=== PATIENT | female | born 2000 | race American Indian/Alaskan Native ===

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

== ENCOUNTER 2022-11-05 22:10 | Emergency (ER) | payer OTHER, SELFPAY ==
[2022-11-05 22:10] VITALS: BP 131/73; PULSE 90; RESP 20; TEMP 36.9; O2SAT 100; BMI 23.0
--- NOTE | 2022-11-05 22:34 | PC.NURSE ---
Pt is crying while laying in bed. Pt reports that she gets overwhelmed due to feeling like nobody will help her and she gets to a point were she can not take it anymore and wishes she could just off herself or the children. The pt has no plan and states that she doesn't truly want to kill herself for her children and that she just feels overwhelmed and wants it all to to end. She states that she is aware of her depression and the steps she must take (medication counseling) but is having a hard time initiating them. She is also sad that her support system will not help her until she helps herself. Pt reports drinking a 5th of vodka tonight and has been vomiting due to the excessive drinking. Pt denies any pain beyond her usual chronic back pain. Pt denies CP, SOB, dizziness. Pt drinking water.
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
[2022-11-05 23:10] LABS: Appearance Urine UA CLEAR; Bilirubin Urine UA NEGATIVE (NEGATIVE); Color Urine UA YELLOW; Glucose Urine UA NEGATIVE (Negative); Ketones Urine UA NEGATIVE (NEGATIVE); Leukocyte Esterase Urine UA 1+ (NEGATIVE); Nitrite Urine UA NEGATIVE (Negative); Occult Blood Urine UA NEGATIVE (Negative); Protein Urine UA NEGATIVE (Negative); Specific Gravity Urine UA 1.025 (1.000-1.035); Urobilinogen Urine UA 0.2 E.U./dL (0.2)
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
[2022-11-05 23:14] LABS: Pregnancy Test Urine Negative (Negative); pH Urine UA 5.5 (4.5-8.0)
[2022-11-05 23:17] LABS: Ur Creatinine 20 (Normal); Ur Specific Gravity >1.030 (Normal); Urine pH 5 (Normal)
[2022-11-05 23:18] LABS: UR Morphine/Opiate cutoff 300 Negative (Negative); Urine Amphetamines Negative (Negative); Urine Barbiturates Negative (Negative); Urine Benzodiazepines Negative (Negative); Urine Cocaine Negative (Negative); Urine MDMA Negative (Negative); Urine Methadone Negative (Negative); Urine Methamphetamines Negative (Negative); Urine Oxycodone Negative (Negative); Urine Phencyclidine Negative (Negative); Urine Tetrahydrocannabinol Positive (Negative); Urine Tricyclic Antidepressant Negative (Negative)
[2022-11-05 23:26] LABS: RBC Urine None Seen (0-5/HPF)
[2022-11-05 23:27] LABS: Bacteria Urine Moderate (10-30); Culture Indicated Urine Specimen Cultured; Squamous Epithelial Cell Urine 1-5 /HPF (0-5/HPF); WBC Urine 1-5/HPF (0-5/HPF)
[2022-11-05 23:53] LABS: Add Manual Diff / Slide Review NO; Basophils Absolute Auto 100 /uL (0-100); Basophils Percent Auto 1.3 % (0-2); Eosinophils Absolute Auto 200 /uL (0-450); Eosinophils Percent Auto 2.9 % (2-4); Hematocrit 34.1 % (36-46); Hemoglobin 11.5 g/dL (12.0-16.0); Lymphocytes Absolute Auto 1600 /uL (1100-4500); Lymphocytes Percent Auto 27.6 % (25-40); Mean Corpuscular HGB Conc 33.8 % (30-36); Mean Corpuscular Hemoglobin 29.1 PG (26-34); Mean Corpuscular Volume 86.1 fL (80-100); Monocytes Absolute Auto 400 /uL (0-900); Neutrophils Absolute Auto 3600 /uL (1500-7000); Neutrophils Percent Auto 61.2 % (50-75); Platelet Count 348 X10^3/uL (150-400); Red Blood Cell Count 3.96 X10^6/uL (4.0-5.2); Red Cell Distribution Width 16.7 % (11.6-14.8); White Blood Cell Count 5.9 X10^3/uL (4.5-11.0)
[2022-11-05 23:56] LABS: Lipase 96 U/L (23-300); Magnesium 1.6 mg/dL (1.6-2.3)
[2022-11-05 23:57] LABS: Alanine Aminotransferase 19 IU/L (<35); Albumin 4.4 g/dL (3.5-5.0); Albumin Globulin Ratio 1.4 (1.0-2.8); Alkaline Phosphatase 86 U/L (38-126); Aspartate Aminotransferase 31 IU/L (14-36); BUN Creatinine Ratio 13.8 (6-22); Bilirubin Total 0.4 mg/dL (0.2-1.3); Blood Urea Nitrogen 8 mg/dL (7-17); Calcium 8.6 mg/dL (8.4-10.2); Carbon Dioxide 24 mmol/L (22-32); Chloride 107 mmol/L (98-107); Estimated Glomerular Filt Rate > 60 mL/min (>60); Globulin 3.1 g/dL (1.7-4.1); Glucose 94 mg/dL (70-100); HEMOLYSIS < 15 (0-50); Potassium 3.5 mmol/L (3.4-5.1); Sodium 141 mmol/L (137-145); Total Protein 7.5 g/dL (6.3-8.2)
[2022-11-06] MEDS: hydrOXYzine pamoate 25 MG CAPSULE PO (00:12)
[2022-11-06 00:49] LABS: Thyroid Stimulating Hormone 0.912 uIU/mL (0.47-4.68)
--- NOTE | 2022-11-06 09:01 | PC.NURSE ---
patient was brought her safety meal tray and offered an apple juice. She is hungry and making the effort to eat. She is tearful stating that she lost her girls because she tried to do the right thing and called for help She fears that she will never get them back.
[2022-11-06 09:27] VITALS: BP 144/93; PULSE 90; RESP 18; TEMP 37.2; O2SAT 100
--- NOTE | 2022-11-06 10:35 | PC.NURSE ---
Pt okayed for staff to start a [place] request Case # [id number], I spoke with Ivy Pt's husbands command guillermoman/carlos manuel have been notified. [phone]
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
== END 2022-11-06 16:14 | disposition home or self-care (01) ==
PROVIDERS: Emergency Medicine; Emergency Provider Emergency Medicine
DX: F43.0 Acute stress reaction (principal)
CPT/HCPCS: 36415; 80053; 80305; 81001; 81025; 83690; 83735; 84443; 85025; 87086; 99284

== ENCOUNTER 2022-11-24 23:24 | Emergency (ER) | payer OTHER, SELFPAY ==
[2022-11-24 23:32] VITALS: BP 124/58; PULSE 81; RESP 18; TEMP 36.7; O2SAT 99; BMI 23.9
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
[2022-11-25] MEDS: HYDROCODONE/ACET 5/325 TABLET 2 TAB PO (01:47)
[2022-11-25] MEDS: KETOROLAC 30 MG/ML VIAL IM (01:47)
[2022-11-25] MEDS: CYCLOBENZAPRINE 10 MG PREPACK 1 BOTTLE MISC (01:48)
[2022-11-25 02:13] VITALS: BP 108/74; PULSE 70; RESP 16; TEMP 36.3; O2SAT 99
== END 2022-11-25 02:20 | disposition home or self-care (01) ==
PROVIDERS: Emergency Provider Emergency Medicine
DX: M54.16 Radiculopathy, lumbar region (principal); Z79.899 Other long term (current) drug therapy
CPT/HCPCS: 72100; 73110; 81003; 81025; 96372; 99283; J1885

== ENCOUNTER → 2023-02-21 08:59 | Outpatient (CLI) | payer OTHER, MEDICAID, SELFPAY ==
--- NOTE | 2023-02-21 09:04 | DI.MRI.S_ITS ---
PROCEDURE: MR LUMBAR SPINE WO CON INDICATIONS: RADICULOPATHY/EVAL NEURO STRUCTURES AND FUSION TECHNIQUE: Noncontrast sagittal T1 spin echo and T2 fast echo, sagittal STIR, and T2 fast spin echo through the lumbar spine. In cases with scoliosis, additional coronal T2 fast spin echo may be performed. COMPARISON: [facility], CR, XR LUMBAR SPINE WITH OBLIQUES PLUS FLEXION EXTENSION, 10/28/2022, 10:50. [facility], MR, MR LUMBAR SPINE WITHOUT CONTRAST, 03/13/2020, 10:27. FINDINGS: Image quality: Excellent. Alignment and Curvature: There is normal bony alignment. Bilateral posterior lateral kisha and pedicle screw fixation at L5-S1 with interbody spacer placement. Bone Marrow: Marrow is of normal overall signal. No acute vertebral body compression fractures. Spinal Cord: Conus medullaris terminates at the L1 level. Visualized cord demonstrates normal signal and size. Paraspinous Soft Tissues: No paravertebral masses. T12-L1: Normal appearance. L1-L2: Normal appearance. L2-L3: Normal appearance. L3-L4: Normal appearance. L4-L5: Diffuse disc bulge. No canal stenosis or foraminal stenosis. L5-S1: Expected postoperative appearance. No canal stenosis or foraminal stenosis. IMPRESSION: 1. Expected postoperative appearance L5-S1. No canal stenosis or foraminal stenosis. 2. Disc bulge at L4-L5. 3. No canal stenosis or foraminal stenosis. Dictated by: Carlos Baugh M.D. on 02/23/2023 at 12:27 Approved by: Carlos Baugh M.D. on 02/23/2023 at 12:33
== END ==
PROVIDERS: Referring Provider Orthopaedic Surgery Orthopaedic Surgery of the Spine; Visit Provider Orthopaedic Surgery Orthopaedic Surgery of the Spine
DX: M51.16 Intervertebral disc disorders with radiculopathy, lumbar region (principal); Z98.1 Arthrodesis status
CPT/HCPCS: 72148